=== PATIENT | female | born 1980 | race African-American/Black ===

== ENCOUNTER 2021-04-26 10:33 | Emergency (ER) | payer SELFPAY ==
[~2021-04-26] VITALS: Ht 157.5 cm; Wt 81.0 kg
[2021-04-26] MEDS ORDERED: ACET-2708 PO (11:52)
[2021-04-26] MEDS ORDERED: FLUT9.9S BOTHNSTRLS (11:52)
[2021-04-26] MEDS ORDERED: D-ME473S50 PO (11:52)
[2021-04-26] MEDS ORDERED: AMOX-494 PO (11:52)
[2021-04-26 12:03] VITALS: BP 123/95
== END 2021-04-26 12:03 | disposition home or self-care (01) ==
LOC: ER 10:33
DX: J32.9 Chronic sinusitis, unspecified (principal); Z88.5 Allergy status to narcotic agent; Z90.49 Acquired absence of other specified parts of digestive tract
CPT/HCPCS: 81025; 99283